=== PATIENT | female | born 1995 | race Two or more races ===

== ENCOUNTER 2024-09-04 22:47 | Emergency (ER) | payer OTHER ==
[~2024-09-04] VITALS: Ht 172.7 cm; Wt 113.4 kg
[2024-09-05] MEDS ORDERED: KETOROLAC TROMETHAMINE 10 MG TABLET PO STA (01:20)
[2024-09-05] MEDS ORDERED: KETOROLAC TROMETHAMINE 10 MG TABLET PO ONE (01:40)
[2024-09-05] MEDS ORDERED: KETO10TA2 PO (04:56)
== END 2024-09-05 05:02 ==
LOC: ER 22:50
DX: M94.0 Chondrocostal junction syndrome [Tietze] (principal); I10 Essential (primary) hypertension